=== PATIENT | female | born 1985 | race Caucasian/White ===

== ENCOUNTER 2016-10-03 16:46 | Outpatient (CLI) | payer OTHER ==
--- NOTE | 2016-10-03 19:35 | DIAGNOSTIC IMAGING REPORT ---
PROCEDURE: US OB DETAILED ANATOMIC INDICATION: ANATOMY TECHNIQUE: Correa scale, color, and spectral Doppler images of the second trimester gravid uterus were obtained. COMPARISON: None. FINDINGS: A single living intrauterine is in vertex presentation. There is regular cardiac activity at a rate of 166 beats per minute. The placenta is anterior and away from the internal cervical os. The cervix is closed measuring approximately 3.9 in length. The amniotic fluid volume is subjectively normal. Biparietal diameter 4.9 cm, 20 weeks 5 days Head circumference 18.2 cm, 20 weeks 4 days Abdominal circumference 15.7 cm, 20 weeks 6 days Femur length 3.4 cm, 20 weeks 6 days Head to abdominal circumference ratio and femur length to abdominal circumference ratios are normal. Estimated weight 376 g plus/minus 56 g Composite gestational age 20 weeks 5 days There was visualization of a number of normal structures including the intracranial contents, facial features, nuchal region, spine, four-chamber heart and outflow tracts to the extent that could be visualized, diaphragm, fluid-filled stomach, kidneys, abdomen, urinary bladder, upper and lower extremities, and genitals. A three-vessel umbilical cord, normal and placental cord insertion sites were seen. IMPRESSION: 1. Single living intrauterine with a composite gestational age of 20 weeks 5 days, in good agreement with the clinically assigned gestational age of 20 weeks 6 days. 2. Symmetric growth and normal anatomy.
== END 2016-10-03 23:00 ==
LOC: US SRH 16:46
DX: Z34.92 Encounter for supervision of normal pregnancy, unspecified, second trimester (principal); Z3A.20 20 weeks gestation of pregnancy